=== PATIENT | male | born 2000 | race Caucasian/White ===

== ENCOUNTER 2019-09-19 09:34 | Emergency (ER) | payer SELFPAY ==
[~2019-09-19] VITALS: Ht 167.6 cm; Wt 70.3 kg
[~2019-09-19 09:34] MED LIST: COLACE100 MG PO; NORCO1 TA2 PO
[2019-09-19 09:48] VITALS: BP 139/81; Ht 167.6 cm; Wt 70.3 kg
== END 2019-09-19 12:21 | disposition home or self-care (01) ==
LOC: ED 09:34
DX: S93.401A Sprain of unspecified ligament of right ankle, initial encounter (principal); Z90.89 Acquired absence of other organs; X50.1XXA Overexertion from prolonged static or awkward postures, initial encounter; Y93.02 Activity, running; Y92.89 Other specified places as the place of occurrence of the external cause; Y99.8 Other external cause status